=== PATIENT | female | born 1980 | race Two or more races ===

== ENCOUNTER 2018-05-15 15:09 | Emergency (ER) | payer MEDICAID ==
[~2018-05-15] VITALS: Ht 170.2 cm; Wt 78.9 kg
[~2018-05-15 15:09] MED LIST: PREN-96 PO
[2018-05-15 16:13] VITALS: BP 116/67
== END 2018-05-15 17:51 | disposition home or self-care (01) ==
LOC: ER 15:09
DX: M13.841 Other specified arthritis, right hand (principal)
CPT/HCPCS: 73130; 81025

== ENCOUNTER 2022-11-22 08:42 | Emergency (ER) | payer MEDICAID ==
[~2022-11-22] VITALS: Ht 165.1 cm; Wt 88.6 kg
[2022-11-22 09:14] VITALS: BP 113/65
[2022-11-22 09:17] LABS: Urine Bacteria NONE SEEN /hpf (None Seen); Urine Blood 3+ /uL (Negative); Urine Mucus FEW (None Seen); Urine Specific Gravity 1.018 (1.001-1.035); Urine WBC 85 /hpf (0 - 5)
[2022-11-22] MEDS ORDERED: IBUP800T26 PO (10:28)
[2022-11-22] MEDS ORDERED: NITR-87 PO (10:28)
== END 2022-11-22 10:44 | disposition home or self-care (01) ==
LOC: ER 08:42
DX: N39.0 Urinary tract infection, site not specified (principal); R51.9 Headache, unspecified
CPT/HCPCS: 81001